=== PATIENT | male | born 1980 | race African-American/Black ===

== ENCOUNTER 2023-05-20 06:51 | Emergency (ER) | payer BC ==
[~2023-05-20] VITALS: Ht 167.6 cm; Wt 84.0 kg
[2023-05-20 07:04] VITALS: O2SAT 98
[2023-05-20 07:47] LABS: BASOPHILS % 0.9 % (0.0-2.0); EOSINOPHILS % 3.7 % (0.0-5.0); HEMATOCRIT. 42.7 % (42.0-52.0); HEMOGLOBIN. 13.9 g/dL (14.0-18.0); LYMPHOCYTES % 43.4 % (20.0-50.0); MEAN CORPUSCULAR HEMOGLOBIN 26.6 pg (28.0-32.0); MEAN CORPUSCULAR HGB CONC 32.6 g/dL (31.0-37.0); MEAN CORPUSCULAR VOLUME 81.7 fL (80.0-94.0); MEAN PLATELET VOLUME 7.9 fl (7.4-10.4); MONOCYTES % 6.8 % (2.0-8.0); NEUTROPHILS % 45.2 % (40.0-76.0); PLATELET 211 x1000/uL (130-400); RED BLOOD CELL COUNT 5.22 mill/uL (4.7-6.1); RED CELL DISTRIBUTION WIDTH 12.2 % (11.6-14.6); WHITE BLOOD COUNT 3.8 x1000/uL (4.5-11.0)
[2023-05-20 07:56] LABS: INR 1.1; PARTIAL THROMBOPLASTIN TIME 27.7 sec (23.4-31.0); PROTHROMBIN TIME 11.3 sec (9.6-11.0)
[2023-05-20 08:01] LABS: ALANINE AMINOTRANSFERASE 24 IU/L (10-49); ALBUMIN 4.5 g/dL (3.2-4.8); ASPARTATE AMINOTRANSFERASE 32 IU/L (<34); BILIRUBIN TOTAL 1.5 mg/dL (0.1-1.0); CALCIUM 9.6 mg/dL (8.7-10.4); CARBON DIOXIDE 25 mEq/L (21-32); CHLORIDE 106 mEq/L (98-107); CREATININE 1.1 mg/dL (0.6-1.3); GLUCOSE 88 mg/dL (70-105); POTASSIUM 3.7 mEq/L (3.5-5.1); PROTEIN TOTAL 8.4 g/dL (6.0-8.3); SODIUM 137 mEq/L (136-145); UREA NITROGEN BLOOD 19 mg/dL (9-23)
[2023-05-20 08:08] LABS: TROPONIN I HIGH SENSITIVITY < 4 ng/L (3.0-53)
[2023-05-20 09:21] VITALS: BP 143/87; PULSE 67; RESP 16; TEMP 98.3
== END 2023-05-20 09:22 | disposition home or self-care (01) ==
LOC: ER 06:51
DX: R07.89 Other chest pain (principal); E80.7 Disorder of bilirubin metabolism, unspecified
CPT/HCPCS: 36415; 71045; 76604; 80053; 84484; 85025; 93005; 93880; 99285

== ENCOUNTER 2023-06-01 05:12 | Inpatient (IN) | payer BC ==
[~2023-06-01] VITALS: Ht 170.2 cm; Wt 71.2 kg
[2023-06-01] MEDS ORDERED: ALBUTEROL (0.083%) 2.5MG/3ML NEB HHN STA (05:30)
[2023-06-01] MEDS ORDERED: MAGNESIUM 2 G PREMIX 50 ML IV ONE (05:30)
[2023-06-01] MEDS ORDERED: IPRATROPIUM BROMIDE (0.02%) 0.5MG/2.5ML NEB HHN STA (05:30)
[2023-06-01] MEDS ORDERED: METHYLPREDNISOLONE SOD SUCC 125MG/2ML (ACT-O-VIAL) IV STA (05:30)
[2023-06-01 05:52] LABS: BASOPHILS % 1.3 % (0.0-2.0); EOSINOPHILS % 3.3 % (0.0-5.0); HEMATOCRIT. 39.9 % (42.0-52.0); HEMOGLOBIN. 13.1 g/dL (14.0-18.0); LYMPHOCYTES % 61.4 % (20.0-50.0); MEAN CORPUSCULAR HEMOGLOBIN 26.9 pg (28.0-32.0); MEAN CORPUSCULAR HGB CONC 32.9 g/dL (31.0-37.0); MEAN CORPUSCULAR VOLUME 81.8 fL (80.0-94.0); MEAN PLATELET VOLUME 8.2 fl (7.4-10.4); MONOCYTES % 6.6 % (2.0-8.0); NEUTROPHILS % 27.4 % (40.0-76.0); PLATELET 209 x1000/uL (130-400); RED BLOOD CELL COUNT 4.88 mill/uL (4.7-6.1); RED CELL DISTRIBUTION WIDTH 12.4 % (11.6-14.6); WHITE BLOOD COUNT 4.5 x1000/uL (4.5-11.0)
[2023-06-01 05:54] LABS: D-DIMER < 0.19 mg/L FEU (<0.50); PARTIAL THROMBOPLASTIN TIME 27.5 sec (23.4-31.0); PROTHROMBIN TIME 11.1 sec (9.6-11.0)
[2023-06-01 06:05] LABS: ALANINE AMINOTRANSFERASE 25 IU/L (10-49); ALBUMIN 4.4 g/dL (3.2-4.8); ASPARTATE AMINOTRANSFERASE 34 IU/L (<34); BILIRUBIN TOTAL 1.2 mg/dL (0.1-1.0); CALCIUM 9.5 mg/dL (8.7-10.4); CARBON DIOXIDE 22 mEq/L (21-32); CHLORIDE 106 mEq/L (98-107); GLUCOSE 103 mg/dL (70-105); POTASSIUM 3.3 mEq/L (3.5-5.1); PROTEIN TOTAL 8.2 g/dL (6.0-8.3); SODIUM 139 mEq/L (136-145); TROPONIN I HIGH SENSITIVITY 4 ng/L (3.0-53); UREA NITROGEN BLOOD 14 mg/dL (9-23)
[2023-06-01 06:07] LABS: ETHANOL BLOOD < 10 mg/dL (<10)
[2023-06-01] MEDS ORDERED: SODIUM CHLORIDE 0.9% 1,000 ML IV ONE (06:30)
[2023-06-01 07:35] LABS: BG BASE EXCESS -2.3 mmol/L (-2.0-2.0); BG CARBOXYHEMOGLOBIN 1.3 % (0.5-1.5); BG FRACTION INSPIRED OXYGEN 28; BG HCO3 ACT 21.7 mmol/L (22.0-26.0); BG METHEMOGLOBIN 0.3 % (0.0-1.5); BG OXYHEMOGLOBIN 96.4 % (94.0-97.0); BG PCO2 35.1 mmHg (35.0-45.0); BG PH 7.409 (7.350-7.450); BG PO2 94.3 mmHg (75.0-100.0); BG SAMPLE SITE LEFT RADIAL; BG TOTAL HEMOGLOBIN 13.3 g/dL (12.0-18.0); BG VENT MODE OXYGENATOR
[2023-06-01 07:57] LABS: TROPONIN I HIGH SENSITIVITY 4 ng/L (3.0-53)
[2023-06-01 12:04] LABS: *AMPHETAMINES SCREEN URINE NEGATIVE (NEGATIVE); *BARBITURATES SCREEN URINE NEGATIVE (NEGATIVE); *BENZODIAZEPINES SCREEN URINE NEGATIVE (NEGATIVE); *COCAINE SCREEN URINE NEGATIVE (NEGATIVE); CANNABINOID URINE SCREEN NEGATIVE (NEGATIVE); ECSTASY MDMA SCREEN URINE NEGATIVE (NEGATIVE); METHADONE URINE SCREEN Neg (NEGATIVE); OPIATES URINE SCREEN NEGATIVE (NEGATIVE); PHENCYCLIDINE URINE SCREEN NEGATIVE (NEGATIVE)
[2023-06-01] MEDS ORDERED: MAGNESIUM/ALUMINUM HYDROXIDE/SIMETHICONE 30ML UDC PO PRN (14:30)
[2023-06-01] MEDS ORDERED: CLONIDINE 0.1MG TABLET PO PRN (14:30)
[2023-06-01] MEDS ORDERED: DOCUSATE SODIUM 100MG CAPSULE PO PRN (14:30)
[2023-06-01] MEDS ORDERED: ACETAMINOPHEN 325MG TABLET PO PRN ×2 (14:30)
[2023-06-01] MEDS ORDERED: PIPERACILLIN/TAZOBACTAM 3.375 G in DEXTROSE 5% WATER 50 ML IV SCH (14:30)
[2023-06-01] MEDS ORDERED: POTASSIUM CHLORIDE 20MEQ TABLET SR PO NR (15:30)
[2023-06-01] MEDS ORDERED: VANCOMYCIN 1.25GM PMX (XELLIA) 250 ML IV NR (17:00)
[2023-06-01] MEDS: AMLODIPINE 10MG TABLET PO SCH (17:06)
[2023-06-01 18:19] VITALS: BP 134/90; PULSE 69; RESP 20; TEMP 97.6
[2023-06-01 19:00] LABS: CALCIUM 8.6 mg/dL (8.7-10.4); CARBON DIOXIDE 21 mEq/L (21-32); CHLORIDE 109 mEq/L (98-107); CREATININE 1.2 mg/dL (0.6-1.3); GLUCOSE 78 mg/dL (70-105); POTASSIUM 4.1 mEq/L (3.5-5.1); SODIUM 141 mEq/L (136-145); UREA NITROGEN BLOOD 14 mg/dL (9-23)
[2023-06-01 20:00] VITALS: BP 129/89; PULSE 67; RESP 18; TEMP 97.7
[2023-06-01] MEDS: FAMOTIDINE 20MG TABLET PO SCH (21:29)
[2023-06-01] MEDS: ENOXAPARIN 40MG/0.4ML SYR SUBCUT SCH (21:32)
[2023-06-01] MEDS: PIPERACILLIN/TAZO 3.375G/50ML 50 ML IV SCH (23:45)
[2023-06-02 00:28] VITALS: BP 140/72; PULSE 78; RESP 18; TEMP 98.2
[2023-06-02 04:00] VITALS: BP 122/69; PULSE 54; RESP 18; TEMP 98
[2023-06-02] MEDS ORDERED: VANCOMYCIN 750MG PREMIX 150 ML IV SCH (05:00)
[2023-06-02] MEDS: PIPERACILLIN/TAZO 3.375G/50ML 50 ML IV SCH ×3 (05:51→21:59)
[2023-06-02 08:00] VITALS: BP 134/79; PULSE 51; RESP 18; TEMP 98
[2023-06-02 08:04] LABS: T4 FREE 1.14 ng/dL (0.89-1.76); THYROID STIMULATING HORMONE 1.27 uIU/mL (0.55-4.78)
[2023-06-02 08:22] LABS: BASOPHILS % 0.5 % (0.0-2.0); EOSINOPHILS % 3.8 % (0.0-5.0); HEMOGLOBIN. 12.9 g/dL (14.0-18.0); LYMPHOCYTES % 45.5 % (20.0-50.0); MEAN CORPUSCULAR HEMOGLOBIN 26.7 pg (28.0-32.0); MEAN CORPUSCULAR HGB CONC 33.2 g/dL (31.0-37.0); MEAN CORPUSCULAR VOLUME 80.3 fL (80.0-94.0); MEAN PLATELET VOLUME 8.4 fl (7.4-10.4); MONOCYTES % 7.5 % (2.0-8.0); NEUTROPHILS % 42.7 % (40.0-76.0); PLATELET 191 x1000/uL (130-400); RED BLOOD CELL COUNT 4.85 mill/uL (4.7-6.1); RED CELL DISTRIBUTION WIDTH 12.4 % (11.6-14.6); WHITE BLOOD COUNT 3.7 x1000/uL (4.5-11.0)
[2023-06-02] MEDS: AMLODIPINE 10MG TABLET PO SCH (09:00)
[2023-06-02 09:10] LABS: HEPATITIS B SURFACE ANTIGEN NEGATIVE (Negative); HEPATITIS C AB NON REACTIVE (Neg) (Negative)
[2023-06-02 12:00] VITALS: BP 124/64; PULSE 72; RESP 18; TEMP 97.5
[2023-06-02] MEDS ORDERED: PNEUMOCOCCAL 23-VAL P-SAC VAC 0.5 ML IM ONE (15:00)
[2023-06-02 16:00] VITALS: BP 120/82; PULSE 72; RESP 18; TEMP 97
[2023-06-02] MEDS: VANCOMYCIN 1G PREMIX 200 ML IV SCH (18:08)
[2023-06-02 20:00] VITALS: BP 111/77; PULSE 73; RESP 18; TEMP 97.9
[2023-06-02] MEDS: FAMOTIDINE 20MG TABLET PO SCH (21:59)
[2023-06-02] MEDS: ENOXAPARIN 40MG/0.4ML SYR SUBCUT SCH (21:59)
[2023-06-03] VITALS: BP 117/83; PULSE 84; RESP 20; TEMP 97.3
[2023-06-03 04:00] VITALS: BP 103/58; PULSE 69; RESP 19; TEMP 98.6
[2023-06-03] MEDS: VANCOMYCIN 1G PREMIX 200 ML IV SCH (05:20)
[2023-06-03] MEDS: PIPERACILLIN/TAZO 3.375G/50ML 50 ML IV SCH (05:20)
[2023-06-03 05:31] LABS: CARBON DIOXIDE 25 mEq/L (21-32); CHLORIDE 107 mEq/L (98-107); CREATININE 1.1 mg/dL (0.6-1.3); GLUCOSE 95 mg/dL (70-105); POTASSIUM 3.7 mEq/L (3.5-5.1); SODIUM 137 mEq/L (136-145); UREA NITROGEN BLOOD 14 mg/dL (9-23)
[2023-06-03 05:32] LABS: CALCIUM 9.3 mg/dL (8.7-10.4)
[2023-06-03 08:00] VITALS: BP 114/78; PULSE 75; RESP 18; TEMP 97.5
[2023-06-03] MEDS: AMLODIPINE 10MG TABLET PO SCH (09:00)
[2023-06-03] MEDS ORDERED: AMLO10TA80 PO (11:19)
[2023-06-03 11:22] VITALS: BP 141/92; PULSE 84; TEMP 97.5; O2SAT 100
[2023-06-03 12:00] VITALS: BP 141/92; PULSE 84; RESP 18; TEMP 97.5
[2023-06-08 09:07] LABS: DOPAMINE PLASMA <30 pg/mL (0-48); EPINEPHRINE PLASMA 50 pg/mL (0-62); NOREPINEPHRINE PLASMA 289 pg/mL (0-874)
== END 2023-06-03 13:40 | disposition home or self-care (01) | DRG 644 ==
LOC: ER 05:12 → 5WST 10:25 → EDBEDREQ 10:27 → 7WST 18:27
PROVIDERS: ADMIT Internal Medicine; ATTEND Internal Medicine
DX: D35.00 Benign neoplasm of unspecified adrenal gland (principal); R65.10 Systemic inflammatory response syndrome (SIRS) of non-infectious origin without acute organ dysfunction; F41.0 Panic disorder [episodic paroxysmal anxiety]; Z79.899 Other long term (current) drug therapy; R06.03 Acute respiratory distress
CPT/HCPCS: 36415; 36600; 71045; 74176; 80048; 80053; 80061; 80202; 80305; 80320; 82375; 82805; 82962; 83036; 83605; 83835; 83880; 84145; 84439; 84443; 84481; 84484; 85025; 85379; 86705; 87340; 87426; 93005; 93306; 93880; 93970; 94640; 99285; J1650; J2543; J2930; J3370; J3475; J7030; G0480

== ENCOUNTER → 2023-09-25 | Emergency (ER) | payer BC ==
[~2023-09-25] VITALS: Ht 167.6 cm; Wt 87.0 kg
[~2023-09-25] MED LIST: AMLO10TA80 PO; NITR-87 MT; PYR200 MT
[2023-09-25 09:24] VITALS: O2SAT 100
[2023-09-25 09:44] LABS: CLARITY URINE CLOUDY (CLEAR); COLOR URINE RED (YELLOW); GLUCOSE URINE NEGATIVE (NEGATIVE); KETONES URINE NEGATIVE (NEGATIVE); LEUKOCYTE ESTERASE URINE 3+ (NEGATIVE); NITRITE URINE NEGATIVE (NEGATIVE); OCCULT BLOOD URINE 3+ (NEGATIVE); PROTEIN URINE TRACE (NEGATIVE); SPECIFIC GRAVITY URINE 1.005 (1.005-1.030); UROBILINOGEN URINE 0.2 E.U./dL (0.2-1.0)
[2023-09-25] MEDS: SODIUM CHLORIDE 0.9% 1,000 ML IV ONE (10:00)
[2023-09-25 10:19] LABS: BACTERIA URINE NONE SEEN; RBC URINE 50-100 /hpf (0-2); SQUAMOUS EPITHELIAL CELL URINE RARE /lpf (RARE/1+); WBC URINE 50-100 /hpf (0-2); YEAST URINE NONE SEEN
[2023-09-25 10:48] LABS: BASOPHILS % 0.8 % (0.0-2.0); EOSINOPHILS % 2.6 % (0.0-5.0); HEMATOCRIT. 42.6 % (42.0-52.0); HEMOGLOBIN. 14.3 g/dL (14.0-18.0); MEAN CORPUSCULAR HEMOGLOBIN 26.8 pg (28.0-32.0); MEAN CORPUSCULAR HGB CONC 33.5 g/dL (31.0-37.0); MEAN PLATELET VOLUME 8.5 fl (7.4-10.4); MONOCYTES % 5.5 % (2.0-8.0); NEUTROPHILS % 68.1 % (40.0-76.0); PLATELET 185 x1000/uL (130-400); RED BLOOD CELL COUNT 5.32 mill/uL (4.7-6.1); RED CELL DISTRIBUTION WIDTH 12.6 % (11.6-14.6); WHITE BLOOD COUNT 5.4 x1000/uL (4.5-11.0)
[2023-09-25 10:56] LABS: PROTHROMBIN TIME 10.8 sec (9.6-11.0)
[2023-09-25 11:04] LABS: CARBON DIOXIDE 26 mEq/L (21-32); CHLORIDE 106 mEq/L (98-107); POTASSIUM 4.1 mEq/L (3.5-5.1); SODIUM 137 mEq/L (136-145)
[2023-09-25 11:06] LABS: CALCIUM 9.9 mg/dL (8.7-10.4)
[2023-09-25 11:10] LABS: CREATININE 1.1 mg/dL (0.6-1.3); GLUCOSE 79 mg/dL (70-105); UREA NITROGEN BLOOD 12 mg/dL (9-23)
[2023-09-25 12:15] VITALS: BP 130/76; PULSE 65; RESP 16; TEMP 97.5
== END | disposition home or self-care (01) ==
LOC: ER 09:12
DX: N39.0 Urinary tract infection, site not specified (principal); M25.532 Pain in left wrist
CPT/HCPCS: 80048; 81003; 85025; 85610; 87086; 36415; 73110; 99284; J7030; Z7610